=== PATIENT | male | born 1970 | race Caucasian/White ===

== ENCOUNTER 2016-12-21 16:13 | Emergency (ER) | payer BC, OTHER ==
[2016-12-21 16:28] VITALS: BP 192/106; PULSE 111; RESP 18; TEMP 97.4
[2016-12-21] MEDS ORDERED: TOPICAL SKIN ADHESIVE 1 EACH AMP TOPICAL ONE (16:48)
[2016-12-21] MEDS ORDERED: DIPH,PERTUS(ACELL)TETVAC-LF 0.5 ML VIAL IM ONE (16:49)
--- NOTE | 2016-12-21 17:00 | ED ---
General Adult HPI - General Chief complaint: Wound/Laceration Stated complaint: Cat Scratch to Eye Time Seen by Provider: 12/21/16 16:31 Source: patient, RN notes reviewed Mode of arrival: ambulatory Limitations: no limitations - History of Present Illness Initial comments: This is a 46-year-old male who presents to the emergency department with chief complaint of cat scratch. Patient states that approximately 30 minutes prior to arrival he was visiting with his sister. He states that her pet cat scratched him under his right eye and nose. Patient states he is not up-to- date with tetanus vaccinations. Sister at bedside reports that her cat has never been to a battery container tester so is not up-to-date with vaccinations. She states she is able to observe the cat and he is not acting abnormally. Denies fever, chills, chest pain, shortness of breath, abdominal pain, nausea or vomiting, constipation or diarrhea, dysuria or hematuria, numbness or tingling, headache or vision changes. - Related Data Previous Rx's Medication Instructions Recorded Amoxicillin/Potassium Clav 1 tab PO Q12HR #20 tab 12/21/16 [Augmentin 875-125 Tablet] Allergies Allergy/AdvReac Type Severity Reaction Status Date / Time No Known Allergies Allergy Verified 12/21/16 16:28 Review of Systems ROS Statement: Those systems with pertinent positive or pertinent negative responses have been documented in the HPI. ROS Other: All systems not noted in ROS Statement are negative. Past Medical History Past Medical History: No Reported History History of Any Multi-Drug Resistant Organisms: None Reported Past Surgical History: Appendectomy Past Psychological History: No Psychological Hx Reported Smoking Status: Current every day smoker Past Alcohol Use History: Occasional Past Drug Use History: None Reported General Exam - General Exam Comments Initial Comments: General: Awake and alert, well-developed; in no apparent distress. Sister is at bedside HEENT: Head atraumatic, normocephalic. Pupils are equal, round and reactive to light. Extraocular movements intact. There is a 1.0 cm superficial, linear laceration inferior to the right eye. Small abrasion on the right nasal bridge. Bleeding is controlled. Oropharynx moist without erythema or exudate. Neck: Supple. Normal ROM. Cardiovascular: Regular rate and rhythm. No murmurs, rubs or gallops. Chest symmetrical. Respiratory: Lungs clear to auscultation bilaterally. No wheezes, rales or rhonchi. Normal respiratory effort with no use of accessory muscles. Skin: [place], warm and dry without rashes. Neurological: Alert and oriented x3. CN II-XII grossly intact. Speech is fluent and answers are appropriate. No focal neuro deficits. Psychiatric: Normal mood and affect. No overt signs of depression or anxiety noted. Limitations: no limitations Course Vital Signs 12/21/16 16:25 Temperature 97.4 F L Pulse Rate 111 H Respiratory 18 Rate Blood Pressure 192/106 O2 Sat by Pulse 95 Oximetry Procedures - Laceration Laceration #1 Consent Obtained: verbal consent Indication: laceration Site: face (inferior to right eye ) Size (cm): 1 Description: linear Depth: simple, single layer Pre-repair: wound explored, irrigated extensively, deep structures intact Type of Sutures: other (dermabond ) Patient Tolerated Procedure: well, no complications Medical Decision Making - Medical Decision Making This is a 46-year-old male who presents to the emergency department with complaint of cat scratch. There is a small superficial laceration inferior to right eye. The wound was cleansed and irrigated. Patient refused sutures and requested glue. Dermabond was applied as edges were well-approximated. Patient tolerated well without complication. He was made up-to-date with tetanus vaccination. He will be discharged home with prescription for Augmentin. Patient and sister were educated about rabies and advised to observe pet cat's behavior over the next few weeks. Patient is in agreement to the plan and voices understanding. All questions were answered. Disposition Clinical Impression: Laceration of face Disposition: HOME SELF-CARE Condition: Good Instructions: Facial Laceration (ED) Additional Instructions: Please take medications as prescribed. Please follow up with primary care provider within 1-2 days. Return to emergency department if symptoms should worsen or any concerns arise. Prescriptions: Amoxicillin/Potassium Clav [Augmentin 875-125 Tablet] 1 tab PO Q12HR #20 tab Referrals: None,Stated [Primary Care Provider] - 1-2 days Time of Disposition: 17:17
== END 2016-12-21 17:27 | disposition home or self-care (01) ==
LOC: EC 16:13
DX: S01.81XA Laceration without foreign body of other part of head, initial encounter (principal); S00.31XA Abrasion of nose, initial encounter; F17.200 Nicotine dependence, unspecified, uncomplicated; Z23 Encounter for immunization; W55.03XA Scratched by cat, initial encounter
CPT/HCPCS: 12011; 90471; 90715; 99283